=== PATIENT | male | born 1965 | race Caucasian/White ===

== ENCOUNTER 2021-07-24 09:37 | Inpatient (IN) ==
[2021-07-24] MEDS ORDERED: Naloxone 0.4 MG/ML INJ IVP PRN (11:59)
[2021-07-24] MEDS ORDERED: Benzonatate 100 MG CAPSULE PO PRN (12:15)
[2021-07-24] MEDS ORDERED: hydrOXYzine pamoate 25 MG CAPSULE PO PRN (12:54)
[2021-07-24] MEDS: Acetaminophen 325 MG TABLET PO PRN (13:16)
[2021-07-24] MEDS: ALPRAZolam 1 MG TABLET PO PRN (19:18)
[2021-07-24] MEDS: QUEtiapine Fumarate 100 MG TABLET PO SCH (21:29)
[2021-07-24] MEDS: traZODone 50 MG TABLET PO PRN (21:29)
[2021-07-25] MEDS ORDERED: 0.9 % Sodium Chloride 1,000 ML IVC ONE (03:45)
[2021-07-25] MEDS: *HR* Enoxaparin 40 MG/0.4 ML SYRINGE SQ SCH (05:11)
[2021-07-25] MEDS: Acetaminophen 325 MG TABLET PO PRN ×3 (06:02→17:40)
[2021-07-25 06:33] LABS: Basophils % 0.4 %; Hemoglobin 12.6 g/dL (12.9-16.9); Immature Granulocytes % 0.3 % (0-4); Lymphocytes # 2.1 K/mcL (0.6-4.6); Mean Corpuscular HGB Conc 33.2 g/dL (31.6-35.5); Mean Corpuscular Hemoglobin 30.7 pg (28.0-33.3); Mean Corpuscular Volume 92.7 fL (83.0-100.0); Mean Platelet Volume 10.4 fL (9.4-12.4); Monocytes # 1.4 K/mcL (0.0-1.3); Monocytes % 12.4 %; Neutrophils # 7.4 K/mcL (1.6-8.9); Platelet Count 198 K/mcL (140-400); Red Cell Distribution Width 12.4 % (11.5-14.5); Segmented Neutrophils % 67.9 %; White Blood Count 10.9 K/mcL (4.3-11.1)
[2021-07-25 06:46] LABS: BUN/Creatinine Ratio 13 (6-26); Blood Urea Nitrogen 16 mg/dL (6-20); Calcium 8.1 mg/dL (8.6-10.3); Carbon Dioxide 25 mEq/L (23-29); Chloride 102 mEq/L (98-107); Glucose 105 mg/dL (70-105); Osmolality,Calculated 284 (280-300); Potassium 3.8 mEq/L (3.5-5.1); Sodium 136 mEq/L (136-145); eGFR For African Americans > 60 (> 60); eGFR For Non-African Americans 59 (> 60)
[2021-07-25] MEDS ORDERED: Ringers Solution, Lactated 1,000 ML IVC ONE (10:28)
[2021-07-25] MEDS: QUEtiapine Fumarate 25 MG TABLET PO SCH (12:36)
[2021-07-25] MEDS: Chloraseptic Spray 177 ML BOTTLE MM PRN ×2 (12:41→17:42)
[2021-07-25] MEDS: QUEtiapine Fumarate 100 MG TABLET PO SCH (20:50)
[2021-07-26] MEDS: *HR* Enoxaparin 40 MG/0.4 ML SYRINGE SQ SCH (05:07)
[2021-07-26] MEDS: Acetaminophen 325 MG TABLET PO PRN ×2 (05:08→21:44)
[2021-07-26] MEDS: QUEtiapine Fumarate 25 MG TABLET PO SCH ×2 (09:44→21:35)
[2021-07-26] MEDS: Chloraseptic Spray 177 ML BOTTLE MM PRN (09:45)
[2021-07-26] MEDS: ALPRAZolam 1 MG TABLET PO PRN (10:37)
[2021-07-26] MEDS: traZODone 50 MG TABLET PO PRN (21:35)
[2021-07-26] MEDS: QUEtiapine Fumarate 100 MG TABLET PO SCH (21:35)
[2021-07-27 01:52] LABS: Basophils % 0.5 %; Eosinophils # 0.1 K/mcL (0.0-0.6); Eosinophils % 1.4 %; Hematocrit 41.7 % (37.5-50.1); Hemoglobin 14.1 g/dL (12.9-16.9); Immature Granulocytes % 0.2 % (0-4); Lymphocytes # 2.3 K/mcL (0.6-4.6); Lymphocytes % 28.7 %; Mean Corpuscular HGB Conc 33.8 g/dL (31.6-35.5); Mean Corpuscular Hemoglobin 30.8 pg (28.0-33.3); Mean Platelet Volume 10.7 fL (9.4-12.4); Monocytes % 11.8 %; Neutrophils # 4.7 K/mcL (1.6-8.9); Platelet Count 226 K/mcL (140-400); Red Blood Count 4.58 M/mcL (4.19-5.50); Red Cell Distribution Width 12.1 % (11.5-14.5); Segmented Neutrophils % 57.4 %; White Blood Count 8.1 K/mcL (4.3-11.1)
[2021-07-27 02:12] LABS: BUN/Creatinine Ratio 12 (6-26); Blood Urea Nitrogen 13 mg/dL (6-20); Calcium 8.7 mg/dL (8.6-10.3); Carbon Dioxide 27 mEq/L (23-29); Chloride 104 mEq/L (98-107); Glucose 103 mg/dL (70-105); Magnesium 1.9 mg/dL (1.6-2.6); Osmolality,Calculated 286 (280-300); Phosphorous 4.4 mg/dL (2.7-4.5); Potassium 3.9 mEq/L (3.5-5.1); Sodium 138 mEq/L (136-145); eGFR For African Americans > 60 (> 60); eGFR For Non-African Americans > 60 (> 60)
[2021-07-27] MEDS: *HR* Enoxaparin 40 MG/0.4 ML SYRINGE SQ SCH (05:40)
[2021-07-27] MEDS: QUEtiapine Fumarate 25 MG TABLET PO SCH ×2 (07:58→21:19)
[2021-07-27] MEDS ORDERED: *HR* Promethazine 25 MG/ML VIAL IM PRN (12:43)
[2021-07-27 17:45] LABS: Amphetamine Screen,Urine Negative ng/mL (Cutoff=1000); Barbiturate Screen,Urine Negative ng/mL (Cutoff=200); Benzodiazepines Screen,Urine Positive ng/mL (Cutoff=200); Cannabinoid Screen,Urine Positive ng/mL (Cutoff = 50); Cocaine Screen,Urine Negative ng/mL (Cutoff= 300); Opiate Screen,Urine Negative ng/mL (Cutoff=300); Phencyclidine Screen,Urine Negative ng/mL (Cutoff=25)
[2021-07-27] MEDS: QUEtiapine Fumarate 100 MG TABLET PO SCH (21:19)
[2021-07-27] MEDS: ALPRAZolam 1 MG TABLET PO PRN (21:19)
[2021-07-28] MEDS: *HR* Enoxaparin 40 MG/0.4 ML SYRINGE SQ SCH (05:43)
[2021-07-28] MEDS: Multivit/Ca/Min/Fe/FA 1 TAB TABLET PO SCH (08:09)
[2021-07-28] MEDS: QUEtiapine Fumarate 25 MG TABLET PO SCH (08:09)
[2021-07-28] MEDS: QUEtiapine Fumarate 100 MG TABLET PO SCH (21:04)
[2021-07-29] MEDS: Acetaminophen 325 MG TABLET PO PRN ×2 (05:47→15:18)
[2021-07-29] MEDS: *HR* Enoxaparin 40 MG/0.4 ML SYRINGE SQ SCH (05:47)
[2021-07-29] MEDS: Multivit/Ca/Min/Fe/FA 1 TAB TABLET PO SCH (08:47)
[2021-07-29] MEDS: QUEtiapine Fumarate 25 MG TABLET PO SCH (08:47)
[2021-07-29] MEDS: QUEtiapine Fumarate 100 MG TABLET PO SCH (21:03)
[2021-07-30] MEDS: *HR* Enoxaparin 40 MG/0.4 ML SYRINGE SQ SCH (05:50)
[2021-07-30] MEDS: Multivit/Ca/Min/Fe/FA 1 TAB TABLET PO SCH (08:49)
[2021-07-30] MEDS: Loratadine 10 MG TABLET PO SCH (08:49)
[2021-07-30] MEDS: QUEtiapine Fumarate 25 MG TABLET PO SCH (08:50)
[2021-07-30] MEDS: Acetaminophen 325 MG TABLET PO PRN (08:50)
[2021-07-30] MEDS: QUEtiapine Fumarate 100 MG TABLET PO SCH (19:54)
[2021-07-30] MEDS: ALPRAZolam 1 MG TABLET PO PRN (19:55)
[2021-07-31] MEDS: *HR* Enoxaparin 40 MG/0.4 ML SYRINGE SQ SCH (06:20)
[2021-07-31] MEDS: Multivit/Ca/Min/Fe/FA 1 TAB TABLET PO SCH (10:12)
[2021-07-31] MEDS: Loratadine 10 MG TABLET PO SCH (10:12)
[2021-07-31] MEDS: QUEtiapine Fumarate 25 MG TABLET PO SCH (10:12)
[2021-07-31] MEDS: QUEtiapine Fumarate 100 MG TABLET PO SCH (20:25)
[2021-07-31] MEDS: ALPRAZolam 1 MG TABLET PO PRN (20:27)
[2021-08-01] MEDS: *HR* Enoxaparin 40 MG/0.4 ML SYRINGE SQ SCH (04:55)
[2021-08-01] MEDS: QUEtiapine Fumarate 25 MG TABLET PO SCH (07:18)
[2021-08-01] MEDS: Loratadine 10 MG TABLET PO SCH (07:18)
[2021-08-01] MEDS: Multivit/Ca/Min/Fe/FA 1 TAB TABLET PO SCH (07:18)
[2021-08-01] MEDS: QUEtiapine Fumarate 100 MG TABLET PO SCH (23:53)
[2021-08-02 06:12] VITALS: O2SAT 94
[2021-08-02] MEDS: *HR* Enoxaparin 40 MG/0.4 ML SYRINGE SQ SCH (07:09)
[2021-08-02] MEDS: Multivit/Ca/Min/Fe/FA 1 TAB TABLET PO SCH (07:54)
[2021-08-02] MEDS: Loratadine 10 MG TABLET PO SCH (07:54)
[2021-08-02] MEDS: QUEtiapine Fumarate 25 MG TABLET PO SCH (07:55)
[2021-08-02] MEDS: QUEtiapine Fumarate 100 MG TABLET PO SCH (22:43)
[2021-08-03] MEDS: *HR* Enoxaparin 40 MG/0.4 ML SYRINGE SQ SCH (05:57)
[2021-08-03 08:16] VITALS: BP 118/75; PULSE 83; TEMP 98.3
[2021-08-03] MEDS: Loratadine 10 MG TABLET PO SCH (09:45)
[2021-08-03] MEDS: QUEtiapine Fumarate 25 MG TABLET PO SCH (09:45)
== END 2021-08-03 11:08 | disposition other institution (70) | DRG 137 ==
LOC: 3BNU 09:37 → EMEROOARM 09:37 → SUATTDRO 11:54 → 3BNU 12:27 → SUATTDRO 07-25 15:56
PROVIDERS: ADMIT Internal Medicine; ATTEND Internal Medicine